=== PATIENT | female | born 1950 | race Caucasian/White ===

== ENCOUNTER 2020-12-14 08:44 | Outpatient (CLI) | payer MEDICARE, OTHER, SELFPAY ==
--- NOTE | ~2020-12-14 | MM_ITS ---
EXAMINATION: MM screening ariela BI w celeste HISTORY: Screening mammogram TECHNIQUE: Craniocaudal and mediolateral oblique 3-D tomosynthesis images were obtained and synthetic 2-D images were generated. CAD analysis was submitted and interpreted. COMPARISON: 02/11/2019 bilateral digital screening mammogram BREAST PARENCHYMAL COMPOSITION: The breasts are almost entirely fatty. FINDINGS: There is no evidence of suspicious mass, calcification, or architectural distortion to sugg est malignancy in either breast. There has been no suspicious interval change. IMPRESSION: 1. No mammographic evidence of malignancy. 2. Recommend routine screening mammography in one year. BI-RADS Category 1: Negative Reviewed, dictated and finalized at location A.
--- NOTE | ~2020-12-14 | DEXA_ITS ---
Bone Density Report Name: Araceli Crooks Age: 70 Sex: Female Ethnicity: White Date of : 1950 Indication: postmenopausal; height loss; Referring Provider: Sonya Melchor Study: Bone densitometry was performed. Exam Date: December 14, 2020 Accession number: [id number] Bone Density: Region BMD T-score Z-score Classification AP Spine (L1, L2, L3) 1.092 0.7 2.6 Normal Femoral Neck (Left) 0.809 -0.4 1.4 Normal Total Hip (Left) 0.914 -0.2 1.2 Normal Total Hip Bilateral Avg 0.922 -0.2 1.3 Normal Femoral Neck (Right) 0.791 -0.5 1.2 Normal Total Hip (Right) 0.930 -0.1 1.3 Normal World Health Organization criteria for BMD impression classify patients as: Normal (T-score at or above -1.0), Osteopenia (T-score between -1.0 and -2.5), or Osteoporosis (T-score at or below -2.5). 10-year Fracture Risk: FRAX not reported because: All T-scores for Spine Total, Hip Total, Femoral Neck at or above -1.0 Clinical Information Provided by Patient: Has used the following medications: Vitamin D Patient maximum height was 62 Menopause Age: 44 Drinks caffeinated beverages Onset of menses at age 17 Number of children 2 Impression: The patient has normal bone mass. Discussion: BONE DENSITY IS ABOVE THE MINIMUM DESIRABLE LEVEL AT ALL SKELETAL SITES TESTED. This patient?s bone mineral density is above the minimum desirable level (T-score -1.0 or better) at all sites measured. The patient should follow a healthful lifestyle (good nutrition with adequate calcium and vitamin D, and appropriate weight-bearing exercise). Follow-Up: Consider repeating this study in 5 years or sooner if there is some new clinical indication. Reported by: DANIELLE on 12/14/2020 9:33:00 AM. Reviewed, dictated and finalized at location ALance MENEZES
== END 2020-12-14 08:45 | disposition home or self-care (01) ==
PROVIDERS: PCP Family Medicine; Visit Provider Physician Assistant
DX: Z12.31 Encounter for screening mammogram for malignant neoplasm of breast (principal); Z78.0 Asymptomatic menopausal state
CPT/HCPCS: 77063; 77067; 77080

== ENCOUNTER 2021-05-24 08:24 | Outpatient (CLI) | payer MEDICARE, OTHER, SELFPAY ==
[2021-05-24 09:20] LABS: Cholesterol 122 mg/dL (0-200); HDL Direct 47 mg/dL; Triglycerides 200 mg/dL (<150)
[2021-05-24 09:31] LABS: LDL Cholesterol Direct 49 mg/dL
== END 2021-05-24 08:25 | disposition home or self-care (01) ==
PROVIDERS: PCP Family Medicine; Visit Provider Internal Medicine Cardiovascular Disease
DX: E11.69 Type 2 diabetes mellitus with other specified complication (principal); E78.5 Hyperlipidemia, unspecified
CPT/HCPCS: 36415; 80061

== ENCOUNTER 2022-12-07 08:11 | Outpatient (CLI) | payer MEDICARE, OTHER, SELFPAY ==
[2022-12-07 09:46] LABS: Cholesterol 142 mg/dL (0-200); HDL Direct 36 mg/dL; Triglycerides 152 mg/dL (<150)
[2022-12-07 09:58] LABS: LDL Cholesterol Direct 72 mg/dL
== END 2022-12-07 08:12 | disposition home or self-care (01) ==
LOC: ANHLAB 08:15
PROVIDERS: PCP Family Medicine; Visit Provider Internal Medicine Cardiovascular Disease
DX: I25.10 Atherosclerotic heart disease of native coronary artery without angina pectoris (principal); E11.69 Type 2 diabetes mellitus with other specified complication; E78.2 Mixed hyperlipidemia
CPT/HCPCS: 36415; 80061

== ENCOUNTER 2024-05-04 08:21 | Outpatient (CLI) | payer MEDICARE, OTHER, SELFPAY ==
--- NOTE | ~2024-05-04 | DEXA_ITS ---
Bone Density Report Name: JOSE GO Age: 74 Sex: Female Ethnicity: White Date of : 1950 Indication: postmenopausal; screening for osteoporosis; height loss; Referring Provider: ARIK, POPPY Coreas Study: Bone densitometry was performed. Exam Date: May 04, 2024 Accession number: [id number] Bone Density: Region BMD T-score Z-score Classification AP Spine(L1-L4) 1.139 0.8 3.1 Normal Femoral Neck (Left) 0.846 0.0 1.9 Normal Total Hip (Left) 0.932 -0.1 1.5 Normal Femoral Neck (Right) 0.818 -0.3 1.6 Normal Total Hip (Right) 0.946 0.0 1.7 Normal Total Hip Mean 0.939 -0.1 1.6 Normal World Health Organization criteria for BMD impression classify patients as: Normal (T-score at or above -1.0), Osteopenia (T-score between -1.0 and -2.5), or Osteoporosis (T-score at or below -2.5). 10-year Fracture Risk: FRAX not reported because: All T-scores for Spine Total, Hip Total, Femoral Neck at or above -1.0 Previous Exams: Region Exam Age BMD T-score BMD Change BMD Change Date g/cm2 vs Baseline vs Previous Total Hip(Left) 05/04/2024 74 0.932 -0.1 0.018 (1.9%) 0.018 (1.9%) 12/14/2020 70 0.914 -0.2 Total Hip(Right) 05/04/2024 74 0.946 0.0 0.016 (1.7%) 0.016 (1.7%) 12/14/2020 70 0.930 -0.1 *Denotes significance at 95% confidence level, LSC for Total Hip = 0.027 g/cm2 Clinical Information Provided by Patient: Has used the following medications: Vitamin D Patient maximum height was 62.0 Menopause Age: 44 No regular weight bearing exercise Drinks caffeinated beverages Onset of menses at age 16 Number of children 2 Impression: The patient has normal bone mass. No significant bone loss was observed. Discussion: BONE DENSITY IS ABOVE THE MINIMUM DESIRABLE LEVEL AT ALL SKELETAL SITES TESTED. This patient?s bone mineral density is above the minimum desirable level (T-score -1.0 or better) at all sites measured. The patient should follow a healthful lifestyle (good nutrition with adequate calcium and vitamin D, and appropriate weight-bearing exercise). Follow-Up: Consider repeating this study in 5 years or sooner if there is some new clinical indication. Reported by: ANTHONY on 05/04/2024 9:04:00 AM. Reviewed, dictated and finalized at location A. [facility] HE[facility] SYSTEMSivakumar
--- NOTE | ~2024-05-04 | MM_ITS ---
EXAMINATION: MM screening ariela BI w celeste HISTORY: Screening mammogram TECHNIQUE: Craniocaudal and mediolateral oblique 3-D tomosynthesis images were obtained and synthetic 2-D images were generated. CAD analysis was submitted and interpreted. COMPARISON: 12/06/2020, 02/11/2019 BREAST PARENCHYMAL COMPOSITION:Not Dense. There are scattered areas of fibroglandular density. FINDINGS: No suspicious mass, calcification, or architectural distortion are identified in either rodney ast to suggest malignancy. There has been no suspicious interval change. IMPRESSION: No mammographic evidence of malignancy. Recommend routine screening mammography in one year. BI-RADS Category 1: Negative Reviewed, dictated and finalized at location .
== END 2024-05-04 08:22 | disposition home or self-care (01) ==
LOC: ANHIMG 08:24
PROVIDERS: PCP Family Medicine; Visit Provider Physician Assistant
DX: Z12.31 Encounter for screening mammogram for malignant neoplasm of breast (principal); Z78.0 Asymptomatic menopausal state
CPT/HCPCS: 77063; 77067; 77080